=== PATIENT | male | born 1950 | race Caucasian/White ===

== ENCOUNTER 2019-12-24 06:28 | Day surgery (SDC) | payer OTHER ==
[~2019-12-24] VITALS: Ht 177.8 cm; Wt 124.7 kg
[~2019-12-24 06:28] MED LIST: AMLO10 PO; ATEN100 PO; FLAX PO; LOSARTAN-HCTZ1 EAC1 PO; METF500 PO
--- NOTE | 2019-12-24 07:15 | NUR ---
12/24/19 0715 Olga Lidia Dill FIRST IV ATTEMPT INFILTRATED. G
== END 2019-12-24 08:14 | disposition home or self-care (01) ==
LOC: ORSCSDS 06:28
PROVIDERS: Ophthalmology
PROC: 08RK3JZ Replacement of Left Lens with Synthetic Substitute, Percutaneous Approach (ICD-10-PCS; principal; 2019-12-24 07:30)
DX: H25.12 Age-related nuclear cataract, left eye (principal); E66.9 Obesity, unspecified; Z68.39 Body mass index [BMI] 39.0-39.9, adult; E11.9 Type 2 diabetes mellitus without complications; I10 Essential (primary) hypertension; Z79.84 Long term (current) use of oral hypoglycemic drugs; Z79.899 Other long term (current) drug therapy
CPT/HCPCS: 82947; J2001; J2250; J3010; J3301; J7040; V2632

== ENCOUNTER 2020-01-14 07:15 | Day surgery (SDC) | payer OTHER ==
[~2020-01-14] VITALS: Ht 177.8 cm; Wt 123.8 kg
[2020-01-14] MEDS ORDERED: LOSARTAN POTASS50 M1 PO (08:30)
[2020-01-14] MEDS ORDERED: MICROZIDE12.5 M1 PO (08:32)
== END 2020-01-14 10:05 | disposition home or self-care (01) ==
LOC: ORSCSDS 07:15
PROVIDERS: Ophthalmology
PROC: 08RJ3JZ Replacement of Right Lens with Synthetic Substitute, Percutaneous Approach (ICD-10-PCS; principal; 2020-01-14 09:00)
DX: H25.11 Age-related nuclear cataract, right eye (principal); I10 Essential (primary) hypertension; E11.9 Type 2 diabetes mellitus without complications; E66.01 Morbid (severe) obesity due to excess calories; Z68.39 Body mass index [BMI] 39.0-39.9, adult; Z79.84 Long term (current) use of oral hypoglycemic drugs; Z79.899 Other long term (current) drug therapy
CPT/HCPCS: 82947; J2001; J2250; J3010; J3301; J7040; V2632

== ENCOUNTER → 2020-12-29 | Outpatient (CLI) | payer OTHER ==
[~2020-12-29] MED LIST changes: +LOSARTAN POTASS50 M1 PO; +MICROZIDE12.5 M1 PO
[2020-12-29 17:09] LABS: BASOPHILS ABSOLUTE AUTO 0.05 K/mm3 (0.00-0.23); BASOPHILS PERCENT AUTO 1 % (0-2); EOSINOPHILS ABSOLUTE AUTO 0.26 K/mm3 (0.00-0.68); EOSINOPHILS PERCENT AUTO 3 % (0-6); Hematocrit 40.8 % (37.0-53.0); Hemoglobin 13.5 g/dL (13.5-17.5); IMMATURE GRAN ABSOLUTE AUTO 0.05 K/mm3 (0.00-0.10); IMMATURE GRAN PERCENT AUTO 1 % (0-1); LYMPHOCYTES ABSOLUTE AUTO 2.79 K/mm3 (0.84-5.20); LYMPHOCYTES PERCENT AUTO 29 % (21-46); MONOCYTES ABSOLUTE AUTO 1.02 K/mm3 (0.16-1.47); MONOCYTES PERCENT AUTO 11 % (4-13); Mean Corpuscular HGB Conc 33.1 g/dL (31.5-36.5); Mean Corpuscular Volume 88 fL (80-100); NEUTROPHILS ABSOLUTE AUTO 5.55 K/mm3 (1.96-9.15); NEUTROPHILS PERCENT AUTO 57 % (41-73); Platelet Count 267 K/mm3 (150-400); RDW Coefficient Variation 13.5 % (11.7-14.2); RDW Standard Deviation 42.8 fL (35.1-46.3); Red Blood Cell Count 4.65 M/mm3 (4.30-5.90); White Blood Cell Count 9.72 K/mm3 (4.00-11.30)
[2020-12-29 17:11] LABS: Bun/Creatinine Ratio 21.5 (12.0-20.0); Calcium, Blood 9.5 mg/dL (8.5-10.1); Creatinine, Blood 1.91 mg/dL (0.60-1.20); Potassium, Blood 4.3 mmol/L (3.5-5.5)
== END | disposition home or self-care (01) ==
LOC: LAB EV 17:01 → LAB SHORT 17:01
PROVIDERS: Physician Assistant Surgical
DX: E86.0 Dehydration (principal)
CPT/HCPCS: 80048; 85025

== ENCOUNTER → 2022-12-14 | Outpatient (CLI) | payer OTHER | END | disposition home or self-care (01) | LOC: PLD 12:35 → LAB SHORT 12:35 | DX: C44.719 Basal cell carcinoma of skin of left lower limb, including hip (principal) | CPT/HCPCS: 88305 ==